=== PATIENT | male | born 1970 | race Caucasian/White ===

== ENCOUNTER 2016-07-13 10:01 | Inpatient (IN) | payer SELFPAY ==
[~2016-07-13] VITALS: Ht 177.8 cm; Wt 83.0 kg
[~2016-07-13 10:01] MED LIST: BACITRACIN 50,000 UNITS INJ IRRIG ONE; BUPIVACAINE 0.25% NERVEBLOCK ONE; LIDOCAINE 2% SYR 5 ML IV ONE; PROPOFOL 50ML PER ML IV ONE
[2016-07-13] MEDS ORDERED: PROPOFOL 50ML PER ML IV ONE (10:28)
[2016-07-13] MEDS ORDERED: FENTANYL 100 MCG/2 ML AMP IV ONE (10:28)
[2016-07-13] MEDS ORDERED: BACITRACIN 50,000 UNITS INJ IRRIG ONE (11:04)
[2016-07-13] MEDS ORDERED: SODIUM CHLORIDE 0.9% 2,000 ML ONE (11:31)
[2016-07-13] MEDS ORDERED: KETOROLAC 30 MG/ML VIAL ONE (11:31)
[2016-07-13] MEDS ORDERED: ONDANSETRON 4 MG VIAL ONE (11:31)
[2016-07-13] MEDS ORDERED: VANCOMYCIN 1,500 MG in SODIUM CHLORIDE 0.9% 250 ML IV ONE (12:15)
[2016-07-13] MEDS ORDERED: PIPERACIL/TAZO 4.5GM/100ML 100 ML IV ONE (12:15)
[2016-07-13 15:03] VITALS: BP_SYST 118; BP_SYST 122; RESP 18; TEMP 98.3
[2016-07-13 15:05] VITALS: BMI 26.3
[2016-07-13] MEDS ORDERED: PHARMACY TO DOSE VANCOMYCIN IV SCH (15:15)
[2016-07-13] MEDS ORDERED: PHARMACY TO DOSE ZOSYN IV SCH (15:15)
[2016-07-13] MEDS ORDERED: DEXTROSE 50% SYRINGE 50 ML IV PRN ×2 (15:15→15:50)
[2016-07-13] MEDS ORDERED: ONDANSETRON 4 MG VIAL IV PUSH PRN (15:15)
[2016-07-13] MEDS ORDERED: GLUCAGON 1 MG VIAL IM PRN ×2 (15:15→15:50)
[2016-07-13] MEDS ORDERED: MAGNEVIST 20ML IV ONE (16:24)
[2016-07-13] MEDS: PIPERACIL/TAZO 3.375GM/50ML 50 ML IV SCH ×2 (17:29→23:40)
[2016-07-13] MEDS: LEVEMIR INSULIN SUBQ SCH (17:30)
[2016-07-13 20:44] VITALS: BP_SYST 120; RESP 16; TEMP 100
[2016-07-13] MEDS: VANCOMYCIN 1,000 MG in SODIUM CHLORIDE 0.9% 250 ML IV SCH (21:22)
[2016-07-13] MEDS: ACETAMINOPHEN 325 MG TAB PO PRN (21:54)
[2016-07-14] VITALS (7 sets, daily range): BP systolic 114–138; RESP 16–20; TEMP 97.9–100.5; Ht 177.8 cm; Wt 83.0 kg
[2016-07-14] MEDS: VANCOMYCIN 1,000 MG in SODIUM CHLORIDE 0.9% 250 ML IV SCH ×3 (04:35→21:55)
[2016-07-14] MEDS: PIPERACIL/TAZO 3.375GM/50ML 50 ML IV SCH ×4 (06:40→23:28)
[2016-07-14] MEDS ORDERED: DILAUDID 1 MG/ML AMP IV PRN (09:05)
[2016-07-14] MEDS: ACETAMINOPHEN 325 MG TAB PO PRN (09:28)
[2016-07-14] MEDS: LEVEMIR INSULIN SUBQ SCH (09:29)
[2016-07-14] MEDS ORDERED: MISSING DOSE XX ONE (10:50)
[2016-07-14] MEDS ORDERED: DAKIN'S 0.125% 480 ML TOPICAL SCH (10:55)
[2016-07-14] MEDS: GENTAMICIN TOPICAL SCH ×2 (16:00→20:24)
[2016-07-15] VITALS (7 sets, daily range): BP systolic 116–140; RESP 18–20; TEMP 97.3–100.6
[2016-07-15] MEDS: VANCOMYCIN 1,500 MG in SODIUM CHLORIDE 0.9% 250 ML IV SCH ×3 (05:21→20:59)
[2016-07-15] MEDS: SODIUM CHLORIDE 0.9% FLUSH BAG 500 ML IV SCH (06:33)
[2016-07-15] MEDS: PIPERACIL/TAZO 3.375GM/50ML 50 ML IV SCH ×3 (06:33→17:12)
[2016-07-15] MEDS: LEVEMIR INSULIN SUBQ SCH (09:20)
[2016-07-15] MEDS: GENTAMICIN TOPICAL SCH ×2 (09:21→17:13)
[2016-07-16] VITALS (12 sets, daily range): BP systolic 110–150; RESP 16–24; TEMP 96.8–98.2
[2016-07-16] MEDS: PIPERACIL/TAZO 3.375GM/50ML 50 ML IV SCH ×5 (00:47→23:21)
[2016-07-16] MEDS: GENTAMICIN TOPICAL SCH ×4 (00:56→20:00)
[2016-07-16] MEDS: SODIUM CHLORIDE 0.9% FLUSH BAG 500 ML IV SCH (05:29)
[2016-07-16] MEDS: VANCOMYCIN 1,500 MG in SODIUM CHLORIDE 0.9% 250 ML IV SCH ×2 (05:30→14:07)
[2016-07-16] MEDS ORDERED: LACT RINGERS 1,000 ML IV SCH (06:00)
[2016-07-16] MEDS ORDERED: MIDAZOLAM 2 MG/2 ML INJ IV ONE (06:00)
[2016-07-16] MEDS ORDERED: MORPHINE 2 MG/ML SYR IV PRN ×2 (12:00→12:15)
[2016-07-16] MEDS ORDERED: OXYCODONE/APAP 5/325 TAB PO PRN (12:00)
[2016-07-16] MEDS ORDERED: DILAUDID 1 MG/ML AMP IV PRN (12:15)
[2016-07-16] MEDS ORDERED: ONDANSETRON 4 MG VIAL IV PRN (12:15)
[2016-07-16] MEDS ORDERED: OXYCODONE 5 MG TAB PO PRN (12:15)
[2016-07-16] MEDS ORDERED: MORPHINE 4 MG/ML SYR IV PRN (12:15)
[2016-07-16] MEDS ORDERED: MEPERIDINE 25 MG/ML IV PRN (12:15)
[2016-07-16] MEDS: LEVEMIR INSULIN SUBQ SCH (13:26)
[2016-07-16] MEDS: VANCOMYCIN 1,250 MG in SODIUM CHLORIDE 0.9% 250 ML IV SCH (20:16)
[2016-07-16] MEDS: ONDANSETRON 4 MG VIAL IV PRN (22:21)
[2016-07-17 03:37] VITALS: BP_SYST 130; RESP 20; TEMP 98.8
[2016-07-17] MEDS: VANCOMYCIN 1,250 MG in SODIUM CHLORIDE 0.9% 250 ML IV SCH ×3 (04:09→20:49)
[2016-07-17] MEDS: SODIUM CHLORIDE 0.9% FLUSH BAG 500 ML IV SCH (05:58)
[2016-07-17] MEDS: PIPERACIL/TAZO 3.375GM/50ML 50 ML IV SCH ×3 (05:58→17:06)
[2016-07-17 07:35] VITALS: BP_SYST 144; RESP 18; TEMP 98.1
[2016-07-17] MEDS: LEVEMIR INSULIN SUBQ SCH (09:04)
[2016-07-17] MEDS: GENTAMICIN TOPICAL SCH ×3 (09:04→20:49)
[2016-07-17 11:26] VITALS: BP_SYST 130; RESP 18; TEMP 98.4
[2016-07-17 16:53] VITALS: BP_SYST 132; RESP 18; TEMP 97.5
[2016-07-17] MEDS: ONDANSETRON 4 MG VIAL IV PRN ×2 (17:07→21:32)
[2016-07-17 19:53] VITALS: BP_SYST 112; RESP 18; TEMP 97.4
[2016-07-17] MEDS ORDERED: LACTULOSE SOLN 20GM/30ML UDC PO PRN (21:10)
[2016-07-18] VITALS (7 sets, daily range): BP systolic 110–172; RESP 16–20; TEMP 96.8–98.7
[2016-07-18] MEDS: PIPERACIL/TAZO 3.375GM/50ML 50 ML IV SCH ×3 (00:35→12:00)
[2016-07-18] MEDS: VANCOMYCIN 1,250 MG in SODIUM CHLORIDE 0.9% 250 ML IV SCH ×2 (04:30→11:44)
[2016-07-18] MEDS: SODIUM CHLORIDE 0.9% FLUSH BAG 500 ML IV SCH (06:49)
[2016-07-18] MEDS: LEVEMIR INSULIN SUBQ SCH (10:11)
[2016-07-18] MEDS: GENTAMICIN TOPICAL SCH ×3 (11:44→20:21)
[2016-07-18] MEDS: SODIUM CHLORIDE 0.9% 1,000 ML IV SCH (14:31)
[2016-07-18] MEDS: PIPERACIL/TAZO 2.25GM/50ML 50 ML IV SCH ×2 (18:17→23:14)
[2016-07-19] VITALS (17 sets, daily range): BP systolic 140–177; RESP 0–20; TEMP 95.9–97.9
[2016-07-19] MEDS: SODIUM CHLORIDE 0.9% 1,000 ML IV SCH ×2 (03:12→17:36)
[2016-07-19] MEDS: PIPERACIL/TAZO 2.25GM/50ML 50 ML IV SCH ×2 (05:42→21:06)
[2016-07-19] MEDS: SODIUM CHLORIDE 0.9% FLUSH BAG 500 ML IV SCH ×2 (05:43→21:30)
[2016-07-19] MEDS ORDERED: SODIUM CHLORIDE 0.9% 1,000 ML IV SCH (09:00)
[2016-07-19] MEDS ORDERED: MIDAZOLAM 2 MG/2 ML INJ IV ONE (09:00)
[2016-07-19] MEDS: LEVEMIR INSULIN SUBQ SCH (09:00)
[2016-07-19] MEDS: GENTAMICIN TOPICAL SCH ×3 (11:29→21:06)
[2016-07-19] MEDS ORDERED: MIDAZOLAM 2 MG/2 ML INJ ONE (17:52)
[2016-07-19] MEDS ORDERED: MEPERIDINE 25 MG/ML IV PRN (18:50)
[2016-07-19] MEDS ORDERED: OXYCODONE 5 MG TAB PO PRN (18:50)
[2016-07-19] MEDS ORDERED: DILAUDID 1 MG/ML AMP IV PRN (18:50)
[2016-07-19] MEDS ORDERED: ONDANSETRON 4 MG VIAL IV PRN (18:50)
[2016-07-19] MEDS ORDERED: MORPHINE 4 MG/ML SYR IV PRN (18:50)
[2016-07-19] MEDS ORDERED: MORPHINE 2 MG/ML SYR IV PRN ×2 (18:50→19:45)
[2016-07-19] MEDS ORDERED: OXYCODONE/APAP 5/325 TAB PO PRN (19:45)
[2016-07-20] VITALS (8 sets, daily range): BP systolic 121–190; RESP 14–20; TEMP 95.9–98.1
[2016-07-20] MEDS: ONDANSETRON 4 MG VIAL IV PRN ×2 (02:10→07:56)
[2016-07-20] MEDS ORDERED: SALINE FLUSH 10 ML FLUSH PRN (05:45)
[2016-07-20] MEDS: SODIUM CHLORIDE 0.9% FLUSH BAG 500 ML IV SCH (05:51)
[2016-07-20] MEDS: GENTAMICIN TOPICAL SCH ×3 (07:56→22:07)
[2016-07-20] MEDS: SALINE FLUSH 10 ML FLUSH SCH ×2 (07:56→22:07)
[2016-07-20] MEDS: PIPERACIL/TAZO 2.25GM/50ML 50 ML IV SCH ×2 (07:56→22:07)
[2016-07-20] MEDS: PROMETHAZINE 25 MG/ML VIAL IV PRN (09:25)
[2016-07-20] MEDS: LEVEMIR INSULIN SUBQ SCH (09:26)
[2016-07-20] MEDS ORDERED: MISSING DOSE XX ONE (19:25)
[2016-07-21] MEDS: PROMETHAZINE 25 MG/ML VIAL IV PRN ×2 (00:22→06:13)
[2016-07-21 03:30] VITALS: BP_SYST 176; RESP 16; TEMP 97.5
[2016-07-21] MEDS: SODIUM CHLORIDE 0.9% FLUSH BAG 500 ML IV SCH ×2 (05:24→06:03)
[2016-07-21 07:25] VITALS: BP_SYST 180; RESP 16
[2016-07-21] MEDS: LEVEMIR INSULIN SUBQ SCH (08:01)
[2016-07-21] MEDS: PIPERACIL/TAZO 2.25GM/50ML 50 ML IV SCH (09:33)
[2016-07-21] MEDS: SALINE FLUSH 10 ML FLUSH SCH (09:33)
[2016-07-21] MEDS: GENTAMICIN TOPICAL SCH ×2 (09:34→16:00)
[2016-07-21 11:51] VITALS: BP_SYST 188; RESP 16
[2016-07-21 12:47] VITALS: BP_SYST 180; BP_SYST 188; RESP 16; TEMP 97.5
[2016-07-21 16:15] VITALS: BP_SYST 210; RESP 16; TEMP 97.6
[2016-07-21 16:42] VITALS: BP_SYST 180
== END 2016-07-21 20:32 | disposition home or self-care (01) | DRG 617 ==
LOC: ENRESERVTM → ENRESERVDT → ER 10:01 → ENPENDDIS 12:43 → EMR 12:43 → 3NT 14:58
PROVIDERS: ADMIT Internal Medicine Nephrology; ATTEND Internal Medicine Nephrology
PROC: 0JBQ0ZZ Excision of Right Foot Subcutaneous Tissue and Fascia, Open Approach (ICD-10-PCS; 2016-07-14)
PROC: 0JBR0ZZ Excision of Left Foot Subcutaneous Tissue and Fascia, Open Approach (ICD-10-PCS; 2016-07-14)
PROC: 02HV33Z Insertion of Infusion Device into Superior Vena Cava, Percutaneous Approach (ICD-10-PCS; 2016-07-14)
PROC: 0Y6Q0Z3 Detachment at Left 1st Toe, Low, Open Approach (ICD-10-PCS; 2016-07-16)
PROC: 0H9LXZX Drainage of Left Lower Leg Skin, External Approach, Diagnostic (ICD-10-PCS; principal; 2016-07-16 10:54)
PROC: 0Y6Q0Z0 Detachment at Left 1st Toe, Complete, Open Approach (ICD-10-PCS; 2016-07-19)
DX: E11.69 Type 2 diabetes mellitus with other specified complication (principal); M86.9 Osteomyelitis, unspecified; M31.30 Wegener's granulomatosis without renal involvement; N17.9 Acute kidney failure, unspecified; Z79.4 Long term (current) use of insulin; E11.628 Type 2 diabetes mellitus with other skin complications; L03.032 Cellulitis of left toe; E11.42 Type 2 diabetes mellitus with diabetic polyneuropathy; E11.51 Type 2 diabetes mellitus with diabetic peripheral angiopathy without gangrene; F32.9 Major depressive disorder, single episode, unspecified; N14.2 Nephropathy induced by unspecified drug, medicament or biological substance; T50.905A Adverse effect of unspecified drugs, medicaments and biological substances, initial encounter; Y92.239 Unspecified place in hospital as the place of occurrence of the external cause; E11.621 Type 2 diabetes mellitus with foot ulcer; L97.519 Non-pressure chronic ulcer of other part of right foot with unspecified severity
CPT/HCPCS: 36569; 73720; 76770; 76937; 80048; 80053; 80069; 80202; 81001; 82040; 82947; 83036; 83605; 84100; 85025; 87040; 87071; 87088; 88305; 88311; 96361; 96365; 96367; 96375